=== PATIENT | male | born 1985 | race Hispanic/Latino ===

== ENCOUNTER 2021-08-04 22:16 | Emergency (ER) | payer SELFPAY ==
[~2021-08-04] VITALS: Ht 160 cm; Wt 75.0 kg
[2021-08-04 22:58] LABS: HEMATOCRIT 38.3 % (39.0-50.0); HEMOGLOBIN 12.9 g/dl (14.0-18.0); IMMATURE GRANULOCYTES 0.2 % (0.0-5.0); MEAN CELL VOLUME 92.7 fL CALC (80.0-100.0); MEAN CORPUSCULAR HGB 31.2 pG CALC (26.0-32.0); MEAN CORPUSCULAR HGB CONC 33.7 g/dL CAL (32.0-36.0); NEUT# 4.64 thou/uL (1.82-7.42); RED BLOOD COUNT 4.13 mill/uL (4.70-6.10); RED CELL DISTRI WIDTH 12.9 % (11.5-15.5)
[2021-08-04 23:07] VITALS: BP 140/80
[2021-08-04 23:13] VITALS: BP 138/82
[2021-08-04 23:13] LABS: ALBUMIN 3.9 g/dL (3.2-5.0); ALKALINE PHOSPHATASE 141 u/l (38-126); ANION GAP 13 (6-22 (CALC)); BILIRUBIN, TOTAL 0.6 mg/dL (0.0-1.4); BUN 18 mg/dL (9-20); BUN/CREATININE RATIO 21 (12-20 (CALC)); CARBON DIOXIDE 23 mmol/l (22-30); CHLORIDE 105 mmol/l (95-108); CREATININE 0.8 mg/dL (0.7-1.3); GFR > 60 ML/MIN (>=60 (CALC)); GFR FOR AFR.AMER. > 60 ML/MIN (>=60 (CALC)); POTASSIUM 3.4 mmol/l (3.5-5.1); SGOT/AST 28 u/l (17-59); SODIUM 137 mmol/l (137-146); TOTAL PROTEIN 7.4 g/dL (6.3-8.2)
[2021-08-04 23:24] LABS: MYOGLOBIN 15 ng/mL (0 - 121)
[2021-08-04 23:30] VITALS: BP 136/83
[2021-08-04] MEDS ORDERED: NAPROXEN500 MG PO (23:43)
[2021-08-05] VITALS (7 sets, daily range): BP systolic 116–128; BP diastolic 72–84
== END 2021-08-05 02:56 | disposition home or self-care (01) | DRG 313 ==
LOC: ED 22:16
PROVIDERS: Emergency Medicine
DX: R07.89 Other chest pain (principal); Z20.822 Contact with and (suspected) exposure to COVID-19

== ENCOUNTER 2022-08-24 20:48 | Emergency (ER) | payer SELFPAY ==
[~2022-08-24] VITALS: Ht 160 cm; Wt 55.0 kg
[~2022-08-24 20:48] MED LIST: NAPROXEN500 MG PO
[2022-08-24 21:52] LABS: BASO% 0.6 % (0-3); IMMATURE GRANULOCYTES 0.3 % (0.0-5.0); LYMPH% 13.1 % (15-41); MEAN CORPUSCULAR HGB 27.9 pG CALC (26.0-32.0); MEAN CORPUSCULAR HGB CONC 33.2 g/dL CAL (32.0-36.0); MONO% 2.3 % (2-13); NEUT# 10.6 thou/uL (1.82-7.42); NEUT% 83.7 % (42-76); RED BLOOD COUNT 5.94 mill/uL (4.70-6.10); RED CELL DISTRI WIDTH 13.9 % (11.5-15.5)
[2022-08-24 21:55] LABS: HEMOGLOBIN 16.6 g/dl (14.0-18.0); MEAN CELL VOLUME 84.2 fL CALC (80.0-100.0)
[2022-08-24 22:03] LABS: ALKALINE PHOSPHATASE 100 u/l (38-126); BUN 14 mg/dL (9-20); BUN/CREATININE RATIO 15 (12-20 (CALC)); CARBON DIOXIDE 22 mmol/l (22-30); CHLORIDE 108 mmol/l (95-108); CREATININE 0.9 mg/dL (0.7-1.3); ETHYL ALCOHOL 137 mg/dl (0-30); GFR FOR AFR.AMER. > 60 ML/MIN (>=60 (CALC)); GFR OTHER RACES > 60 ML/MIN (>=60 (CALC)); LIPASE 46 u/l (23-300); SGOT/AST 35 u/l (17-59)
[2022-08-24 22:06] LABS: ALBUMIN 5.1 g/dL (3.2-5.0); ANION GAP 21 (6-22 (CALC)); BILIRUBIN, TOTAL 1.1 mg/dL (0.2-1.3); POTASSIUM 4.1 mmol/l (3.5-5.1); SODIUM 147 mmol/l (137-146); TOTAL PROTEIN 9.3 g/dL (6.3-8.2)
[2022-08-25 02:11] VITALS: BP 111/64
== END 2022-08-25 02:18 | disposition home or self-care (01) | DRG 897 ==
LOC: ED 20:48
PROVIDERS: Family Medicine
DX: F10.129 Alcohol abuse with intoxication, unspecified (principal); Y90.6 Blood alcohol level of 120-199 mg/100 ml; R11.10 Vomiting, unspecified; Z20.822 Contact with and (suspected) exposure to COVID-19